=== PATIENT | female | born 1945 | race Two or more races ===

== ENCOUNTER → 2024-04-15 | Outpatient (CLI) | payer OTHER, SELFPAY ==
--- NOTE | 2024-04-15 08:15 | XR_ITS ---
Examination: MRI brain without intravenous contrast. Date and time of exam: April 15, 2024 0834 hours INDICATIONS: Cognitive impairment uncertain etiology beginning 2019 with hearing disturbance double and blurred vision Technique: Multiple axial and sagittal images of the brain obtained. Siemens high-resolution 1.5 Ashley short bore scanners utilized. Sagittal sections, T1-weighted, TR 500, TE 14, are performed. Axial sections proton-density and T2-weighted have been obtained. Inversion recovery axial images, TR 9, 260, TE 111, TI 2500. Diffusion weighted images, axial sections, TR 4800, TE 128, B value 1000 Axial sections, ADC map, TR 4800, TE 128 Findings: Enlargement of the sella turcica is not present. The optic chiasm and infundibular are not remarkable. Prepontine and interpeduncular cisterns are not enlarged. There is no localized enlargement of the medulla or negar. Fourth ventricle and cerebellar tonsils appear normal in position. No subacute area of hemorrhage density is seen. Mass in the cerebellopontine angle region is not evident. Globes symmetrical. Orbital musculature including medial lateral rectus muscles do not exhibit abnormality. Diffusion-weighted images demonstrate no focus of restricted diffusion. Increased white matter signal moderate Mass effect upon the ventricular system is not identified. Impression: Negative for acute hemorrhage mass effect or midline shift No acute infarct Moderate chronic microvascular white matter change
--- NOTE | 2024-04-15 08:27 | XR_ITS ---
Examination: Thoracic spine 3 views Technique one AP lateral coned lateral upper dorsal spine 3 views Exam date and time: April 15, 2024 0947 hours INDICATIONS: Upper back pain one year FINDINGS: Prominent osteopenia Upper thoracic dextroscoliosis 15 degrees Lower thoracic levoscoliosis 18 degrees Minimal chronic osteoporotic wedging mid dorsal vertebral bodies No acute thoracic fracture Mild to moderate diffuse thoracic degenerative disc disease IMPRESSION: Scoliosis as above Mild to moderate diffuse thoracic degenerative disc disease
--- NOTE | 2024-04-15 08:27 | XR_ITS ---
Examination: Lumbar spine, 5 views Technique: Lumbar spine AP, lateral, coned lateral lower lumbar spine, bilateral obliques 5 views Exam date and time: April 15, 2024 0910 hours INDICATIONS: Lower back pain beginning one year ago. FINDINGS: Prominent osteopenia Moderate to advanced diffuse facet arthropathy Heavy abdominal aortic calcification No lumbar fracture No spondylolisthesis Minimal anterolisthesis L5 on S1 Mild diffuse lumbar disc narrowing IMPRESSION: Mild diffuse lumbar disc narrowing
== END | disposition home or self-care (01) ==
PROVIDERS: PCP Family Medicine; Referring Provider Family Medicine; Visit Provider Family Medicine
DX: R90.82 White matter disease, unspecified (principal); M41.84 Other forms of scoliosis, thoracic region; M51.34 Other intervertebral disc degeneration, thoracic region; M48.061 Spinal stenosis, lumbar region without neurogenic claudication
CPT/HCPCS: 70551; 72072; 72110

== ENCOUNTER → 2024-06-25 | Outpatient (CLI) | payer OTHER, SELFPAY ==
[2024-06-25 10:12] LABS: Misc Send Out* See Sep Rpt
[2024-06-25 10:38] LABS: Basophils % (Auto) 0 % (0-2.5); Eosinophils # (Auto) 0.1 Thou/mm3 (0.0-0.5); Eosinophils % (Auto) 1 % (0-10); Hematocrit 43.1 % (36.0-46.0); Hemoglobin 14.4 g/dL (12.0-16.0); Immature Granulocytes % (Auto) 0 % (0-0); Immature Granulocytes Auto 0.02 Thou/mm3 (0.00-0.00); Lymphocytes # (Auto) 2.8 Thou/mm3 (1.0-4.8); Lymphocytes % (Auto) 37 % (10-50); Mean Corpuscular HGB Conc 33.4 g/dl (31.0-37.0); Mean Corpuscular Hemoglobin 30.1 pg (25.0-35.0); Mean Corpuscular Volume 90 fL (80-100); Monocytes # (Auto) 0.5 Thou/mm3 (0.0-0.8); Monocytes % (Auto) 6 % (0-12); Neutrophils # (Auto) 4.1 Thou/mm3 (1.8-7.7); Neutrophils % (Auto) 55 % (37-80); Nucleated Red Blood Cell % 0 /100 WBC (0); Platelet Count 187 Thou/mm3 (140-440); RDW Standard Deviation 46.5 fL (36.4-46.3); Red Blood Count 4.79 Miln/mm3 (4.00-5.20); White Blood Count 7.4 Thou/mm3 (3.6-11.0)
[2024-06-25 10:55] LABS: Alanine Aminotransferase 27 U/L (10-49); Albumin, Serum 4.9 gm/dL (3.4-4.8); Albumin/Globulin Ratio 1.5 (1.2-2.2); Alkaline Phosphatase 83 U/L (46-116); Anion Gap 11 (7-16); Aspartate Amino Transferase 27 U/L (0-34); BUN/Creatinine Ratio 30 Ratio (12-20); Bilirubin,Total 0.9 mg/dL (0.3-1.2); Blood Urea Nitrogen 21 mg/dL (9-23); Calcium 9.9 mg/dL (8.3-10.6); Calcium (Corrected) 9.9 mg/dL (8.5-10.1); Carbon Dioxide 25.4 mMol/L (20.0-31.0); Cardiac Risk Estimate 2.7 RATIO (3.7-5.6); Chloride 105 mMol/L (98-107); Cholesterol 190 mg/dL (132-200); Creatinine (Component) 0.7 mg/dL (0.6-1.3); Globulin 3.2 gm/dL (2.3-3.5); Glucose 139 mg/dL (74-106); HDL Cholesterol 71 mg/dL (40-60); LDL Cholesterol,Calculated 105 mg/dL (0-130); Osmolality,Calculated 286 (275-295); Potassium 4.7 mMol/L (3.4-5.1); Sodium 141 mMol/L (136-145); Thyroid Stimulating Hormone 4.67 uIU/mL (0.55-4.78); Total Protein 8.1 gm/dL (5.7-8.2); Triglycerides 69 mg/dL (30-150); eGFR > 60 See Note
[2024-06-25 11:03] LABS: T4 (Thyroxine) 8.8 mcg/dL (4.5-10.9)
[2024-06-25 11:04] LABS: Folate > 24.00 ng/mL (>5.38); Vitamin B12 632 pg/mL (211-911)
[2024-06-25 11:21] LABS: Glucose Estimated Average 146 mg/dL (80-131); Hemoglobin A1C 6.7 % Hgb (4.8-6.0)
[2024-07-01 06:56] LABS: Homocysteine* 10.2 umol/L (<10.4); Methylmalonic Acid, GC/MS/MS* 173 nmol/L (69-390)
[2024-07-02 06:25] LABS: Vitamin B1 (Thiamine)* 8 nmol/L (8-30)
== END | disposition home or self-care (01) ==
LOC: COPL 09:33
PROVIDERS: PCP Family Medicine; Referring Provider Nurse Practitioner Family; Visit Provider Nurse Practitioner Family
DX: R26.81 Unsteadiness on feet (principal); D64.9 Anemia, unspecified; R42 Dizziness and giddiness; G31.84 Mild cognitive impairment of uncertain or unknown etiology; R03.0 Elevated blood-pressure reading, without diagnosis of hypertension
CPT/HCPCS: 36415; 80053; 80061; 82607; 82746; 83036; 83090; 83789; 83921; 84425; 84436; 84443; 85025

== ENCOUNTER 2024-10-30 19:05 | Emergency (ER) | payer OTHER, SELFPAY ==
[2024-10-30 19:13] VITALS: BP 151/75; PULSE 84; RESP 20; TEMP 38.8; O2SAT 95
--- NOTE | 2024-10-30 19:31 | PD.EDRME ---
Rapid Medical Screening Exam RME Arrival date/time: 10/30/24 19:05 Chief Complaint: Fall Vital signs: Vital Signs Temperature 102 F H 10/30/24 19:13 Pulse Rate 84 10/30/24 19:13 Respiratory Rate 20 10/30/24 19:13 Blood Pressure 151/75 H 10/30/24 19:13 Pulse Oximetry (%) 95 10/30/24 19:13 Oxygen Delivery Method Room Air 10/30/24 19:13 Pulse ox is 95% room air RME Narrative: 79-year-old female presents to the ED with complaint of feeling dizzy as well as weak with extreme body pain. Patient tells me she felt and stayed on the floor for 7 hours as she was not able to get herself up off the floor. Patient also did not note that she had a fever. Denies any nausea or vomiting. Has a decreased appetite for food and fluids. Family member tells me the patient has been having urinary tract infections intermittently for the last year.
--- NOTE | 2024-10-30 19:34 | XR_ITS ---
Examination: CT brain head without contrast. 2-D sagittal coronal reconstructions Date and time of exam:October 30, 2024, 2009 hours. INDICATIONS: Patient fell today with injury to the head, blurred vision dizziness headache. CTDI: vol (mGy):44.1. DLP: (mGycm):800 Technique: Multiple CT axial sections of the brain have been obtained, 5 mm slice thickness. Contrast has not been administered. 2-D sagittal, coronal reconstructions have been obtained Low dose protocols were performed. One or more of the following dose reduction techniques were used; automated exposure control, adjustment of the mA and/or KV according to patient size, use of iterative reconstruction technique. Findings: No significant ventricular enlargement. Intra-axial or extra-axial hemorrhage density is not seen. No mass effect or midline shift Basal cisterns are not remarkable. Fourth ventricle is midline. Cranial vault intact. Impression: Negative for acute hemorrhage, mass effect or midline shift
--- NOTE | 2024-10-30 19:34 | EKG_ITS ---
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: : 1945 Requested By: Mohsen Medina Order Number: [id number] Reading MD: Mohsen Medina Measurements Intervals Lorraine Rate: 78 P: GA: QRS: 6 QRSD: 78 T: 207 QT: 416 QTc: 475 Interpretive Statements ATRIAL FIBRILLATION ST DEVIATION AND MODERATE T-WAVE ABNORMALITY, CONSIDER ANTEROLATERAL ISCHEMIA [-0.1+ mV T-WAVE IN V3-V6] ST DEVIATION AND MODERATE T-WAVE ABNORMALITY, CONSIDER INFERIOR ISCHEMIA [-0.1+ mV T-WAVE IN II/aVF] Compared to ECG 05/23/2018 12:24:45 T-wave abnormality now present Possible ischemia now present Sinus rhythm no longer present /store/S0/[id number]/ecg/[id number].pdf
--- NOTE | 2024-10-30 19:35 | XR_ITS ---
Examination: PA lateral chest 2 views Technique portable upright AP lateral chest 2 views Date and time: October 30, 2024, 1945 hours. INDICATIONS: Chest pain today. FINDINGS: Pneumonia left base. No pneumothorax. Normal heart size. Clavicles and ribs intact, chronic osteoporotic compressions dorsal vertebral bodies. IMPRESSION: Pneumonia left base
[2024-10-30 20:07] LABS: Basophils % (Auto) 0 % (0-2.5); Eosinophils % (Auto) 0 % (0-10); Hematocrit 39.1 % (36.0-46.0); Hemoglobin 13.6 g/dL (12.0-16.0); Immature Granulocytes % (Auto) 0 % (0-0); Immature Granulocytes Auto 0.04 Thou/mm3 (0.00-0.00); Lymphocytes # (Auto) 1.7 Thou/mm3 (1.0-4.8); Lymphocytes % (Auto) 18 % (10-50); Mean Corpuscular HGB Conc 34.8 g/dl (31.0-37.0); Mean Corpuscular Hemoglobin 30.3 pg (25.0-35.0); Mean Corpuscular Volume 87 fL (80-100); Monocytes # (Auto) 0.7 Thou/mm3 (0.0-0.8); Monocytes % (Auto) 7 % (0-12); Neutrophils % (Auto) 74 % (37-80); Nucleated Red Blood Cell % 0 /100 WBC (0); Platelet Count 206 Thou/mm3 (140-440); Red Blood Count 4.49 Miln/mm3 (4.00-5.20); White Blood Count 9.5 Thou/mm3 (3.6-11.0)
[2024-10-30 20:29] LABS: B-Type Natriuretic Peptide 232 pg/mL (0-100)
[2024-10-30 20:30] LABS: Alanine Aminotransferase 35 U/L (10-49); Albumin, Serum 4.4 gm/dL (3.4-4.8); Albumin/Globulin Ratio 1.4 (1.2-2.2); Alkaline Phosphatase 68 U/L (46-116); Anion Gap 9 (7-16); Aspartate Amino Transferase 29 U/L (0-34); BUN/Creatinine Ratio 13 Ratio (12-20); Bilirubin,Total 1.1 mg/dL (0.3-1.2); Blood Urea Nitrogen 10 mg/dL (9-23); Carbon Dioxide 24.4 mMol/L (20.0-31.0); Chloride 99 mMol/L (98-107); Creatinine (Component) 0.8 mg/dL (0.6-1.3); Globulin 3.2 gm/dL (2.3-3.5); Glucose 139 mg/dL (74-106); LDH (Lactate Dehydrogenase) 231 U/L (120-246); Magnesium 2.2 mg/dL (1.6-2.6); Osmolality,Calculated 265 (275-295); Potassium 4.4 mMol/L (3.4-5.1); Sodium 132 mMol/L (136-145); Total Protein 7.6 gm/dL (5.7-8.2); eGFR > 60 See Note
[2024-10-30 20:39] LABS: INR 1.1 (0.9-1.3); Prothrombin Time 12.4 Seconds (9.0-12.2)
[2024-10-30 20:48] VITALS: TEMP 38.8
[2024-10-30] MEDS: ACETAMINOPHEN 325 MG TABLET 650 MG PO (20:48)
--- NOTE | 2024-10-30 21:17 | XR_ITS ---
Examination: CT cervical spine without contrast 2-D sagittal reconstructions 2-D coronal reconstructions 3-D reconstructions. Exam date and time:October 30, 2024 at 1007 hours INDICATIONS: Patient fell yesterday with injury to the neck, neck pain CTDI:vol (mGy) 13.8 DLP: (mGycm) : 262 Technique: Multiple 2 mm axial sections of the cervical spine have been obtained. The coronal and sagittal reconstructions have been obtained. 3-D reconstructions have been obtained. Low dose protocols were performed. One or more of the following dose reduction techniques were used; automated exposure control, adjustment of the mA and/or KV according to patient size, use of iterative reconstruction technique. Findings: Axial sections demonstrate intact base of the skull. C1 exhibit satisfactory relationship to the odontoid. No acute cervical vertebral body fracture seen. Alignment posterior spinous processes satisfactory. Impression: No acute cervical fracture.
--- NOTE | 2024-10-30 21:19 | EDNOTE_ITS ---
<Statement entered by Nora Mena MD - 10/31/24 18:25> As co-signing physician, I was present and available for consult prn. I concur with the plan and care as documented by the midlevel provider. ED Fall Injury RME/HPI General Chief Complaint: Fall Stated Complaint: Fall yesterday, weak, slurring her words Time Seen by Provider: 10/30/24 20:55 Arrival date/time: 10/30/24 19:05 RME / HPI RME / HPI Narrative: 79-year-old female presents to the ED with complaint of feeling dizzy as well as weak with extreme body pain. Patient tells me she felt and stayed on the floor for 7 hours as she was not able to get herself up off the floor. Patient also did not note that she had a fever. Denies any nausea or vomiting. Has a decreased appetite for food and fluids. Family member tells me the patient has been having urinary tract infections intermittently for the last year. Patient denies any other complaints. Related Data Previous Rx's ?Medication ?Instructions ?Recorded nitrofurantoin macrocrystal 100 mg 100 mg PO Q12H #14 caps 12/02/18 capsule meloxicam 7.5 mg tablet 7.5 mg PO QDAY #30 tabs 09/05 09/25 cefuroxime axetil 500 mg tablet 500 mg PO BID #14 tabs 05/20/23 sulfamethoxazole 800 1 tab PO BID #10 tabs mg-trimethoprim 160 mg tablet (Bactrim DS) Allergies Allergy/AdvReac Type Severity Reaction Status Date / Time No Known Allergies Allergy Verified 10/30/24 19:10 Review of Systems Review of Systems Narrative Review of Systems: Review of system reviewed and within normal limits except mentioned in HPI ED Exam Narrative Physical exam: VITAL SIGNS: Reviewed. GENERAL APPEARANCE: Alert and interactive, follows commands, no acute distress, HEAD AND FACE: Non-traumatic. ENT: PERRL, pink conjunctivitis, eyelid no trauma, Mucous membrane moist. NECK: Supple, nontender, no nuchal rigidity. CHEST: No tenderness, no crepitus, no paradoxical movement, no retractions. LUNGS: Clear, well ventilated, symmetric, no rales, no wheezing, no ronchi, no stridor, good breath sounds bilaterally. HEART: Regular rate, regular rhythm, no murmur, no gallops. ABDOMEN: Soft, positive bowel sounds, nondistended, no guarding, nontender, no rebound, no masses, RECTAL: Deferred. GENITAL: Deferred. NEUROLOGICAL: Gross motor function intact sensory function intact, Appropriate for age. MUSCULOSKELETAL: low back nontender, full range of motion. EXTREMITIES: Nontender, full range of motion. SKIN: Color pink, dry, no rash, no lacerations, no abrasions, no contusions. LYMPHATICS: Deferred. Course Quality Measures none Orders Category Date Time Status Bedside COVID-19 Antigen Test NOW Care 10/30/24 19:48 Completed EKG (ED ONLY) *Do not use* NOW Care 10/30/24 19:[address] cervical spine wo con Stat Exams 10/30/24 21:[address] head/brain wo con Stat Exams 10/30/24 19:34 Completed EKG (ED Only) Stat Exams 10/30/24 19:34 Draft XR chest 2V Stat Exams 10/30/24 19:35 Completed B-Type Natriuretic Peptide Stat Lab 10/30/24 20:02 Completed CBC Stat Lab 10/30/24 20:02 Completed CMP [Comprehensive Metabolic Panel] Stat Lab 10/30/24 20:02 Completed Creatine Kinase Stat Lab 10/30/24 20:02 Completed Drug Screen,Urine Stat Lab 10/30/24 23:14 Completed LDH (Lactate Dehydrogenase) Stat Lab 10/30/24 20:02 Completed Magnesium Stat Lab 10/30/24 20:02 Completed Partial Thromboplastin Time Stat Lab 10/30/24 20:02 Completed Prothrombin Time with INR Stat Lab 10/30/24 20:02 Completed Troponin I Stat Lab 10/30/24 20:02 Completed Urinalysis Stat Lab 10/30/24 23:14 Completed Acetaminophen Tab [Tylenol Tab] Med 10/30/24 19:47 Discontinued 650 mg PO X1 ONE Sodium Chloride 0.9% 1000 ml [Ns] 1,000 ml Med 10/30/24 21:18 Discontinued IV 999 mls/hr Trimethoprim/Sulfa 160/800 Ds [Bactrim Ds] Med 10/31/24 00:04 Discontinued 1 tab PO X1 ONE Vital Signs Vital signs: Vital Signs Temperature 102 F H 10/30/24 19:13 Pulse Rate 84 10/30/24 19:13 Respiratory Rate 20 10/30/24 19:13 Blood Pressure 151/75 H 10/30/24 19:13 Pulse Oximetry (%) 95 10/30/24 19:13 Oxygen Delivery Method Room Air 10/30/24 19:13 Fall MDM Narrative MDM Narrative:: 79-year-old female presents to the ED with complaint of feeling dizzy as well as weak with extreme body pain. Patient tells me she felt and stayed on the floor for 7 hours as she was not able to get herself up off the floor. Patient also did not note that she had a fever. Denies any nausea or vomiting. Has a decreased appetite for food and fluids. Family member tells me the patient has been having urinary tract infections intermittently for the last year. Patient denies any other complaints. CT scan of the head came back unremarkable. CT scan of the neck came back unremarkable. Chest x-ray came back unremarkable. EKG showed chronic A-fib, ventricular rate of 78 bpm, no ST segment elevation depression noted. Urinalysis positive for UTI. There is of the labs unremarkable. Care transferred to Dr. Spaulding for final disposition Patient data External records reviewed:: None Clinical information provided by:: patient Social determinants that could affect healthcare access:: none Patient has the following chronic illnesses:: None How is presenting disease/condition affected by chronic disease/condition?: no chronic disease Evaluation data The following diagnostics were reviewed and interpreted by me:: lab results, radiology exam(s) and EKG tracing(s) Lab and/or radiology exams considered but not ordered:: None Interpretation Summary: See results [facility] Medications / Prescriptions Medications or Prescriptions considered but not ordered:: None Medication administrations:: Medication Administration History Discontinued Medications Acetaminophen (Acetaminophen 325 Mg Tablet) 650 mg PO X1 ONE Stop: 10/30/24 19:48 Last Admin: 10/30/24 20:48 Dose: 650 mg Documented By: Sodium Chloride (Ns) 1,000 mls @ 999 mls/hr IV .Q1H1M ONE Stop: 10/30/24 22:18 Last Infusion: 10/30/24 23:34 Dose: Infused Documented By: Admin: 10/30/24 22:33 Dose: 999 mls/hr Documented By: EF Trimethoprim/Sulfamethoxazole (Trimethoprim/Sulfa 160/800 Ds Tablet) 1 tab PO X1 ONE Stop: 10/31/24 00:05 Last Admin: 10/31/24 00:15 Dose: 1 tab Documented By: JUANA Iversonrim Consultations Consultation(s) initiated? (list below): No Diagnosis Fall Differential Diagnosis: other (Fall, rhabdomyolysis, UTI) Most likely diagnosis given after review of the tests above:: UTI Admission Indicated Admission indicated?: not indicated Explain why admission is indicated or not indicated:: Stable Admission Request Was there a request for admission?: No Disposition Plan Disposition Plan: Discharge Discharge Attestation Discharge Attestation: The patient and all family members were given an opportunity to ask questions and understood the discharge instructions. Discharge instructions specifically effects, indications for sooner follow up or return to the emergency department, and the expected course of current diagnosis. Patient condition: Stable Discharge Plan Plan Patient Disposition: HOME (Self Care) Prescriptions/Referrals Prescriptions/Med Rec: New sulfamethoxazole-trimethoprim [Bactrim DS] 800-160 mg tablet 1 tab PO BID Qty: 10 0RF No Action nitrofurantoin macrocrystal 100 mg capsule 100 mg PO Q12H Qty: 14 0RF Rx Instructions: must administer with a meal/food meloxicam 7.5 mg tablet 7.5 mg PO QDAY Qty: 30 0RF cefuroxime axetil 500 mg tablet 500 mg PO BID Qty: 14 0RF Referrals: Brandy Miner MD [Primary Care Provider] - In 1 week Problem List Clinical Impression: UTI (urinary tract infection), Fall, Generalized weakness Patient/Caregiver Discharge Instructions Education Materials: ED CYSTITIS Female Adult Print Language: Kazakh Stand Alone Forms: Yolette Award Info., Patient Portal Info Letter
[2024-10-30 21:41] LABS: Creatine Kinase 341 U/L (34-171)
[2024-10-30 22:17] VITALS: BP 132/73; PULSE 69; RESP 17; TEMP 37; O2SAT 98
[2024-10-30 22:25] VITALS: TEMP 37
[2024-10-30] MEDS: SODIUM CHLORIDE 0.9% 1000 ML 1,000 ML 999 ML IV (22:33)
[2024-10-30 23:18] LABS: Collection Type, Urine Clean Catch; RBC,Urine 0 /hpf (0-3)
[2024-10-30 23:24] LABS: Bacteria,Urine 1+; Bilirubin,Urine Negative (Negative); Blood,Urine Negative (Negative); Clarity,Urine Turbid (Clear/Hazy); Color,Urine Yellow (Lt Yel-Yel); Glucose, Urine Trace (Negative); Ketones,Urine Negative (Negative); Leukocyte Esterase,Urine Positive (Negative); Nitrite,Urine Negative (Negative); Protein,Urine Trace (Neg - Trace); Specific Gravity,Urine 1.015 (1.001-1.035); Squamous Epithelial Cell,Urine 5 /hpf (0-5); Urobilinogen,Urine Negative mg/dL (0.0-1.0); WBC,Urine 69 /hpf (0-5)
[2024-10-30 23:37] LABS: Amphetamine/Methamp Scrn,U Negative (Negative); Barbiturate Screen,Urine Negative (Negative); Benzodiazepines Screen,Urine Negative (Negative); Benzoylecgonine Screen, Ur Negative (Negative); Fentanyl Screen,Urine Negative (Negative); Opiate Screen,Urine Negative (Negative); THC Screen,Urine Negative (Negative)
--- NOTE | 2024-10-31 00:05 | PD.EDADDENDU ---
Emergency Room Addendum Addendum Narrative: 2300: Care assumed from Bryn Schmidt NP (emergency provider). Past medical, surgical, social and family history reviewed. Vitals and home medications reviewed. Results and treatment plan discussed. They will assume the care of the patient at this time and will follow the patient, pending labs. The following addendum documentation note is intended to reflect any pending information, findings, or radiology results not included in the patient?s initial chart by the previous shift silvanaibe. 0003: Urine tests positive for UTI. 0007: I have spoken with the patient and discussed today?s findings, in addition to providing specific details for the plan of care. Questions are answered and there is an agreement with the plan. Re-assessment at the time of disposition demonstrates that the patient is in no acute distress. The patient has remained stable throughout the entire ED visit and is without objective evidence for acute process requiring urgent intervention or hospitalization. The patient is stable for discharge; counseling is provided and documented as above, discussing symptomatic treatment and specific conditions for return.
[2024-10-31] MEDS: TRIMETHOPRIM/SULFA 160/800 DS TABLET 1 TAB PO (00:15)
== END 2024-10-31 00:21 | disposition home or self-care (01) ==
PROVIDERS: Physician Assistant; Emergency Provider Emergency Medicine; PCP Family Medicine
DX: S09.90XA Unspecified injury of head, initial encounter (principal); S19.9XXA Unspecified injury of neck, initial encounter; N39.0 Urinary tract infection, site not specified; I48.20 Chronic atrial fibrillation, unspecified; R07.9 Chest pain, unspecified; W19.XXXA Unspecified fall, initial encounter
CPT/HCPCS: 36415; 70450; 71046; 72125; 80053; 80307; 81001; 82550; 83615; 83735; 83880; 84484; 85025; 85610; 85730; 87400; 87502; 87811; 93005; 96360; 99284; J7030; A9270

== ENCOUNTER → 2024-11-04 | Outpatient (CLI) | payer OTHER, SELFPAY | END | disposition home or self-care (01) | LOC: SLDO 14:18 | PROVIDERS: PCP Nurse Practitioner Family; Referring Provider Nurse Practitioner Family; Visit Provider Nurse Practitioner Family | DX: N30.20 Other chronic cystitis without hematuria (principal) | CPT/HCPCS: 87077; 87086; 87186 ==

== ENCOUNTER → 2024-11-07 | Outpatient (CLI) | payer OTHER, SELFPAY | END | disposition home or self-care (01) | LOC: SLDO 14:26 | PROVIDERS: PCP Family Medicine; Referring Provider Nurse Practitioner Family; Visit Provider Nurse Practitioner Family | DX: N39.0 Urinary tract infection, site not specified (principal) | CPT/HCPCS: 87077; 87086; 87186 ==

== ENCOUNTER → 2024-11-19 | Outpatient (CLI) | payer OTHER, SELFPAY ==
[2024-11-19 09:53] LABS: Alanine Aminotransferase 19 U/L (10-49); Albumin, Serum 4.1 gm/dL (3.4-4.8); Albumin/Globulin Ratio 1.2 (1.2-2.2); Alkaline Phosphatase 72 U/L (46-116); Anion Gap 8 (7-16); Aspartate Amino Transferase 22 U/L (0-34); BUN/Creatinine Ratio 19 Ratio (12-20); Bilirubin,Total 1.0 mg/dL (0.3-1.2); Blood Urea Nitrogen 13 mg/dL (9-23); Calcium 9.4 mg/dL (8.3-10.6); Calcium (Corrected) 9.4 mg/dL (8.5-10.1); Carbon Dioxide 27.6 mMol/L (20.0-31.0); Cardiac Risk Estimate 3.0 RATIO (3.7-5.6); Chloride 106 mMol/L (98-107); Cholesterol 157 mg/dL (132-200); Creatinine (Component) 0.7 mg/dL (0.6-1.3); Free T4 (Free Thyroxine) 0.99 ng/dL (0.89-1.76); Globulin 3.3 gm/dL (2.3-3.5); Glucose 115 mg/dL (74-106); HDL Cholesterol 52 mg/dL (40-60); LDL Cholesterol,Calculated 89 mg/dL (0-130); Osmolality,Calculated 284 (275-295); Potassium 4.9 mMol/L (3.4-5.1); Sodium 142 mMol/L (136-145); Thyroid Stimulating Hormone 5.39 uIU/mL (0.55-4.78); Total Protein 7.4 gm/dL (5.7-8.2); Triglycerides 82 mg/dL (30-150); eGFR > 60 See Note
[2024-11-19 10:07] LABS: Basophils # (Auto) 0.0 Thou/mm3 (0.0-0.2); Basophils % (Auto) 0 % (0-2.5); Eosinophils # (Auto) 0.1 Thou/mm3 (0.0-0.5); Eosinophils % (Auto) 2 % (0-10); Glucose Estimated Average 140 mg/dL (80-131); Hematocrit 41.2 % (36.0-46.0); Hemoglobin 14.0 g/dL (12.0-16.0); Hemoglobin A1C 6.5 % Hgb (4.8-6.0); Immature Granulocytes Auto 0.02 Thou/mm3 (0.00-0.00); Lymphocytes # (Auto) 3.6 Thou/mm3 (1.0-4.8); Lymphocytes % (Auto) 52 % (10-50); Mean Corpuscular HGB Conc 34.0 g/dl (31.0-37.0); Mean Corpuscular Hemoglobin 30.4 pg (25.0-35.0); Mean Corpuscular Volume 89 fL (80-100); Monocytes # (Auto) 0.5 Thou/mm3 (0.0-0.8); Monocytes % (Auto) 8 % (0-12); Neutrophils # (Auto) 2.6 Thou/mm3 (1.8-7.7); Neutrophils % (Auto) 38 % (37-80); Nucleated Red Blood Cell # 0.00 Thou/mm3 (0.00-0.00); Nucleated Red Blood Cell % 0 /100 WBC (0); Platelet Count 155 Thou/mm3 (140-440); RDW Standard Deviation 48.6 fL (36.4-46.3); Red Blood Count 4.61 Miln/mm3 (4.00-5.20); White Blood Count 6.8 Thou/mm3 (3.6-11.0)
== END | disposition home or self-care (01) ==
LOC: COPL 08:14
PROVIDERS: PCP Family Medicine; Referring Provider Nurse Practitioner Family; Visit Provider Nurse Practitioner Family
DX: E11.9 Type 2 diabetes mellitus without complications (principal); N39.0 Urinary tract infection, site not specified
CPT/HCPCS: 36415; 80053; 80061; 83036; 84439; 84443; 85025; 87086

== ENCOUNTER 2024-12-30 10:34 | Emergency (ER) | payer OTHER, SELFPAY ==
[2024-12-30 10:35] VITALS: BMI 25.7
[2024-12-30 10:51] VITALS: BP 123/72; PULSE 80; RESP 18; TEMP 36.6; O2SAT 99
--- NOTE | 2024-12-30 10:56 | EDNOTE_ITS ---
ED General RME/HPI General Chief complaint: General Adult/Misc Complain Stated complaint: BLOOD IN URINE Time Seen by Provider: 12/30/24 10:36 Arrival date/time: 12/30/24 10:34 Limitations: no limitations RME / HPI RME / HPI narrative: 79 year old female with history of hypertension, diabetes, s/p hysterectomy presents to the ED for evaluation of vaginal bleeding? and blood in urine that began yesterday afternoon. States she noticed the bleeding shortly after taking her supplements which include magnesium, calcium, potassium. States she had one episode of bleeding that was present without urinating and through the night had three episodes of hematuria. Last occurring at 03:00 AM today. Accompanied by occasional pressure to lower abdomen. Otherwise no complaints reported. Denies fevers, chills, nausea, vomiting, diarrhea, dysuria, or urinary frequency. Patient additionally complains of left upper extremity pain that began 1 month ago. No falls or injuries reported. Denies consulting her PCP regarding pain. Related Data Previous Rx's ?Medication ?Instructions ?Recorded nitrofurantoin macrocrystal 100 mg 100 mg PO Q12H #14 caps 12/02/18 capsule meloxicam 7.5 mg tablet 7.5 mg PO QDAY #30 tabs 09/05 09/25 cefuroxime axetil 500 mg tablet 500 mg PO BID #14 tabs 05/20/23 sulfamethoxazole 800 1 tab PO BID #10 tabs mg-trimethoprim 160 mg tablet (Bactrim DS) Allergies Allergy/AdvReac Type Severity Reaction Status Date / Time No Known Allergies Allergy Verified 12/30/24 10:37 Review of Systems Review of Systems Systems Reviewed: All systems reviewed, normal except as documented Past Medical History Past Medical History CARDIAC: Positive Hypercholesterolemia and Hypertension; Negative Congestive Heart Failure RESPIRATORY: Negative Chronic Obstructive Pulmonary Disease (COPD) GENITOURINARY: Negative Renal Disease ENDOCRINE: Negative Diabetes Mellitus Type 1 or Diabetes Mellitus Type 2 Surgical History SURGICAL: Positive Hysterectomy Social History SMOKING STATUS: Never smoker ED Exam General Limitations: Present no limitations General appearance: Present alert and in no apparent distress Head Head exam: Present atraumatic and normocephalic Eye Eye exam: Present normal appearance, PERRL and EOMI ENT ENT exam: Present normal exam, normal oropharynx and mucous membranes moist Neck Neck exam: Present normal inspection, full ROM and trachea midline Chest Chest inspection: Present normal inspection and symmetric chest wall rise Respiratory Respiratory exam: Present normal lung sounds bilaterally Cardiovascular Cardiovascular exam: Present regular rate, normal rhythm and normal heart sounds Abdominal Exam Abdominal exam: Present soft and normal bowel sounds Extremities Exam Extremities exam: Present normal inspection, full ROM and other (No left upper extremity swelling or tenderness to palpation, no discoloration, pulses intact and equal bilaterally UEs); Absent tenderness Back Exam Back exam: Present normal inspection and full ROM Neurological Exam Neurological exam: Present alert, oriented X3 and CN II-XII intact Psychiatric Psychiatric exam: Present normal affect and normal mood Skin Skin exam: Present warm, dry, intact and normal color Course Quality Measures none Orders Category Date Time Status CT Screening NOW Care 12/30/24 11:08 Completed EKG (ED ONLY) *Do not use* NOW Care 12/30/24 11:[address] abdomen pelvis w con Stat Exams 12/30/24 11:07 Completed CXR [XR chest 1V] Stat Exams 12/30/24 11:07 Completed EKG (ED Only) Stat Exams 12/30/24 11:07 Draft US pelvic complete Stat Exams 12/30/24 11:08 Completed US venous doppler UE LT Stat Exams 12/30/24 11:07 Completed CBC Stat Lab 12/30/24 11:24 Completed CMP [Comprehensive Metabolic Panel] Stat Lab 12/30/24 11:24 Completed Troponin I Stat Lab 12/30/24 11:24 Completed UA, C/S IF [Urinalysis, C/S if Indicated] Stat Lab 12/30/24 14:00 Completed Vital Signs Vital signs: Vital Signs Temperature 98 F 12/30/24 10:51 Pulse Rate 80 12/30/24 10:51 Respiratory Rate 18 12/30/24 10:51 Blood Pressure 123/72 12/30/24 10:51 Pulse Oximetry (%) 99 12/30/24 10:51 Oxygen Delivery Method Room Air 12/30/24 10:51 Pulse ox is 99% on room air which is adequate. Critical Care Time Critical Care Time Critical Care Time: Yes Total Critical Care Time (min.): 45 Attestation: ?I spent 45 minutes of critical care time with this patient not including reportable procedures. There was an acute impairment of an organ system with a high probability of imminent or life threatening deterioration in the patient's condition. Interventions and changes required in the course of therapy are located in the chart. Time involved was spent in direct patient care, reviewing ancillary data, old records, consulting with decision makers, EMS, other doctors, giving orders and documenting. Discharge Plan Plan Patient Disposition: HOME (Self Care) Prescriptions/Referrals Prescriptions/Med Rec: No Action nitrofurantoin macrocrystal 100 mg capsule 100 mg PO Q12H Qty: 14 0RF Rx Instructions: must administer with a meal/food meloxicam 7.5 mg tablet 7.5 mg PO QDAY Qty: 30 0RF cefuroxime axetil 500 mg tablet 500 mg PO BID Qty: 14 0RF sulfamethoxazole-trimethoprim [Bactrim DS] 800-160 mg tablet 1 tab PO BID Qty: 10 0RF Referrals: Rafat Miner MD [Primary Care Provider] - In 1 week Problem List Clinical Impression: Abnormal vaginal bleeding Patient/Caregiver Discharge Instructions Education Materials: Arm Exercises- Biceps Curl Additional Instructions: Please make an appointment with your primary care doctor within the next 1 to 2 days. Your labs today EKG chest x-ray and CT brain were reassuring. No significant abnormalities were appreciated. Your ultrasound of your left upper extremity did not show a blood clot. Your CT of your abdomen and pelvis as well as your pelvic ultrasound did not show any masses or other abnormalities. Your urine does not have any blood. I would recommend that you establish care with a [facility] for further management of your episodes of blood through your vagina. I also recommend that you establish care with a tank [employer] for management of your atrial fibrillation that was diagnosed today on EKG. Print Language: Belizean Stand Alone Forms: Yolette Award Info., Patient Portal Info Letter [facility] Narrative [facility] hospital course: Loyda Dozier, am scribing for and in the presence of Dr. Nicholson. Patient is a 71-year-old female seen emerged from concerns for left upper extremity pain as well as vaginal or urinary bleeding. Vital signs and exam as listed. Concern for DVT urinary tract infection, vaginal tumor, ACS arrhythmia electrolyte abnormality among others. Labs EKG chest x-ray left upper extremity ultrasound CT abdomen pelvis with contrast. Labs with evidence of no leukocytosis, left shift, hemoglobin normal, no acute electrolyte abnormality, no significant metabolic abnormality, no transaminitis, troponin not elevated, EKG with sinus bradycardia heart rate 49, urinalysis nitrate negative, urine is clear patient with amorphous crystals, leuk esterase positive, 9 WBCs, [address] abdomen pelvis without any acute abnormalities. Hepatocellular disease. Pelvic ultrasound without evidence of pelvic mass. Upper extremity ultrasound without evidence of DVT. Chest x-ray findings concerning for possible pneumonia however patient without fever no leukocytosis no cough no shortness of breath less likely less likely RPA. On reevaluation patient hemodynamically stable no distress will discharge home and close return precautions follow-up with primary care doctor. Recommended that she follow-up with her [facility] for further evaluation. Clinical Information Provided by patient Medical Records Reviewed [facility] I reviewed ED visit on 10/31/2024 Meds/Rx Considered, not Ordered None Labs/Rad/Tests considered, not Ordered None Chronic Illness/Social Conditions which may negatively complicate care or outcome(s)-explain: None or not applicable EKG EKG Interpretation narrative: See MDM Lab Interpretation Labs: see narrative above Imaging Imaging interpretation: see narrative above Radiology reports / interpretation(s): Ordering Physician: Nena Nicholson MD Date of Service: 12/30/24 Procedure(s): XR chest 1V Accession Number(s): [id number] cc: Wayne Dee MD; Nena Nicholson MD~ Examination: AP chest single view TECHNIQUE: AP portable upright chest single view Date and time: December 30, 2024, 11:47 AM, comparison October 30, 2024. INDICATIONS: Chest pain today. FINDINGS: Atelectasis versus mild pneumonia left base Normal heart size No pulmonary edema. Moderate osteopenia IMPRESSION: Atelectasis versus mild pneumonia left base, clinical correlation advised Dictated By: Wayne Dee MD Signed By: <Electronically signed by Wayne Dee MD in OV> 12/30/24 1214 ===== Ordering Physician: Nena Nicholson MD Date of Service: 12/30/24 Procedure(s): US venous doppler UE LT Accession Number(s): [id number] cc: Wayne Dee MD; Rafat Miner MD; Nena Nicholson MD~ Examination: Duplex scan of the upper extremity, unilateral left Date and time of exam: December 27, 2024. 12:30 PM INDICATIONS: Left arm swelling beginning one month ago Technique: Duplex scan of the extremity veins using B-mode/grayscale imaging and Doppler spectral analysis and color flow Attention is directed to internal echogenicity, compression and augmentation involving these veins, color flow assessment, spectral analysis Findings: Major deep venous structures in the extremity demonstrate normal course and caliber. There is no evidence of deep vein thrombosis. Normal color flow and spectral analysis Cephalic vein not visualized Impression: Negative for DVT.. Dictated By: Wayne Dee MD Signed By: <Electronically signed by Wayne Dee MD in OV> 12/30/24 1347 Ordering Physician: Nena Nicholson MD Date of Service: 12/30/24 Procedure(s): US pelvic complete Accession Number(s): [id number] cc: Wayne Dee MD; Rafat Miner MD; Nena Nicholson MD~ Examination: Pelvic ultrasound, transabdominal, complete Technique: Transabdominal ultrasound of the pelvis performed using grayscale imaging Date and time of exam: December 30, 2024, 1226 hours INDICATIONS: Vaginal bleeding today FINDINGS: Absent uterus and ovaries No free fluid in the pelvis No pelvic mass Impression: No pelvic mass Dictated By: Wayne Dee MD Signed By: <Electronically signed by Wayne Dee MD in OV> 12/30/24 1344 Ordering Physician: Nena Nicholson MD Date of Service: 12/30/24 Procedure(s): CT abdomen pelvis w con Accession Number(s): [id number] cc: Wayne Dee MD; Rafat Miner MD; Nena Nicholson MD~ Examination: CT abdomen with intravenous contrast CT pelvis with intravenous contrast 2-D coronal reconstructions 2-D sagittal reconstructions Date and time of exam:December 30, 2024, 1358 hours, comparison 01/06/2022. INDICATIONS: Abdominal pain and vaginal bleeding beginning today.. CTDI: vol (mGy) 15.8. DLP: (mGycm) . 521. Technique: Multiple axial sections of the abdomen and pelvis have been obtained. 64 slice high-resolution scanner used. 3 mm axial sections have been obtained, post intravenous injection 60 cc Isovue 370. 2-D sagittal, coronal reconstructions obtained. Low dose protocols were performed. One or more of the following dose reduction techniques were used; automated exposure control, adjustment of the mA and/or KV according to patient size, use of iterative reconstruction technique. Findings: Liver is irregular in contour, no focal liver lesions Absent gallbladder. Spleen are not enlarged. No pancreatic mass. Normal adrenal glands. No renal or ureteral calculi, no hydronephrosis. Abdominal aortic calcification. No pericecal inflammatory change Colonic diverticulosis, no diverticulitis Absent uterus No adnexal mass Moderate osteopenia IMPRESSION: Primary hepatocellular disease No renal or ureteral calculi. Absent uterus, ovaries not visualized. No pelvic mass Dictated By: Wayne Dee MD Signed By: <Electronically signed by Wayne Dee MD in OV> 12/30/24 1442 Medication Administration(s) none Diagnosis Most likely dx, and/or detailed dx discussion: Abnormal vaginal bleeding Dispositon Disposition: Discharge Home
--- NOTE | 2024-12-30 11:07 | XR_ITS ---
Examination: AP chest single view TECHNIQUE: AP portable upright chest single view Date and time: December 30, 2024, 11:47 AM, comparison October 30, 2024. INDICATIONS: Chest pain today. FINDINGS: Atelectasis versus mild pneumonia left base Normal heart size No pulmonary edema. Moderate osteopenia IMPRESSION: Atelectasis versus mild pneumonia left base, clinical correlation advised
--- NOTE | 2024-12-30 11:07 | EKG_ITS ---
[facility] Test Date: 2024-12-30 Pat Name: LOLIS RODRÍGUEZ Department: Room: - Gender: Female [employer]: : 1945 Requested By: Nena Malave Order Number: [id number] Reading MD: Nena Malave Measurements Intervals [place] Rate: 49 P: NE: QRS: -14 QRSD: 77 T: 60 QT: 442 QTc: 400 Interpretive Statements ATRIAL FIBRILLATION WITH SLOW VENTRICULAR RESPONSE NONSPECIFIC T-WAVE ABNORMALITY ABNORMAL RHYTHM ECG Compared to ECG 10/30/2024 19:40:28 Possible ischemia no longer present T-wave abnormality still present /store/S0/[id number]/ecg/[id number].pdf
--- NOTE | 2024-12-30 11:07 | XR_ITS ---
Examination: CT abdomen with intravenous contrast CT pelvis with intravenous contrast 2-D coronal reconstructions 2-D sagittal reconstructions Date and time of exam:December 30, 2024, 1358 hours, comparison 01/06/2022. INDICATIONS: Abdominal pain and vaginal bleeding beginning today.. CTDI: vol (mGy) 15.8. DLP: (mGycm) . 521. Technique: Multiple axial sections of the abdomen and pelvis have been obtained. 64 slice high-resolution scanner used. 3 mm axial sections have been obtained, post intravenous injection 60 cc Isovue 370. 2-D sagittal, coronal reconstructions obtained. Low dose protocols were performed. One or more of the following dose reduction techniques were used; automated exposure control, adjustment of the mA and/or KV according to patient size, use of iterative reconstruction technique. Findings: Liver is irregular in contour, no focal liver lesions Absent gallbladder. Spleen are not enlarged. No pancreatic mass. Normal adrenal glands. No renal or ureteral calculi, no hydronephrosis. Abdominal aortic calcification. No pericecal inflammatory change Colonic diverticulosis, no diverticulitis Absent uterus No adnexal mass Moderate osteopenia IMPRESSION: Primary hepatocellular disease No renal or ureteral calculi. Absent uterus, ovaries not visualized. No pelvic mass
--- NOTE | 2024-12-30 11:07 | XR_ITS ---
Examination: Duplex scan of the upper extremity, unilateral left Date and time of exam: December 27, 2024. 12:30 PM INDICATIONS: Left arm swelling beginning one month ago Technique: Duplex scan of the extremity veins using B-mode/grayscale imaging and Doppler spectral analysis and color flow Attention is directed to internal echogenicity, compression and augmentation involving these veins, color flow assessment, spectral analysis Findings: Major deep venous structures in the extremity demonstrate normal course and caliber. There is no evidence of deep vein thrombosis. Normal color flow and spectral analysis Cephalic vein not visualized Impression: Negative for DVT..
--- NOTE | 2024-12-30 11:08 | XR_ITS ---
Examination: Pelvic ultrasound, transabdominal, complete Technique: Transabdominal ultrasound of the pelvis performed using grayscale imaging Date and time of exam: December 30, 2024, 1226 hours INDICATIONS: Vaginal bleeding today FINDINGS: Absent uterus and ovaries No free fluid in the pelvis No pelvic mass Impression: No pelvic mass
[2024-12-30 11:53] LABS: Basophils # (Auto) 0.0 Thou/mm3 (0.0-0.2); Basophils % (Auto) 0 % (0-2.5); Eosinophils # (Auto) 0.1 Thou/mm3 (0.0-0.5); Eosinophils % (Auto) 1 % (0-10); Hematocrit 38.5 % (36.0-46.0); Hemoglobin 12.7 g/dL (12.0-16.0); Immature Granulocytes Auto 0.02 Thou/mm3 (0.00-0.00); Lymphocytes # (Auto) 3.2 Thou/mm3 (1.0-4.8); Lymphocytes % (Auto) 45 % (10-50); Mean Corpuscular HGB Conc 33.0 g/dl (31.0-37.0); Mean Corpuscular Hemoglobin 30.2 pg (25.0-35.0); Mean Corpuscular Volume 92 fL (80-100); Monocytes # (Auto) 0.6 Thou/mm3 (0.0-0.8); Monocytes % (Auto) 8 % (0-12); Neutrophils # (Auto) 3.2 Thou/mm3 (1.8-7.7); Neutrophils % (Auto) 45 % (37-80); Nucleated Red Blood Cell # 0.00 Thou/mm3 (0.00-0.00); Nucleated Red Blood Cell % 0 /100 WBC (0); Platelet Count 142 Thou/mm3 (140-440); RDW Standard Deviation 49.4 fL (36.4-46.3); Red Blood Count 4.20 Miln/mm3 (4.00-5.20); White Blood Count 7.1 Thou/mm3 (3.6-11.0)
[2024-12-30 12:01] LABS: Alanine Aminotransferase 22 U/L (10-49); Albumin, Serum 4.3 gm/dL (3.4-4.8); Albumin/Globulin Ratio 1.6 (1.2-2.2); Alkaline Phosphatase 68 U/L (46-116); Anion Gap 10 (7-16); Aspartate Amino Transferase 22 U/L (0-34); BUN/Creatinine Ratio 16 Ratio (12-20); Bilirubin,Total 0.6 mg/dL (0.3-1.2); Blood Urea Nitrogen 11 mg/dL (9-23); Calcium 9.8 mg/dL (8.3-10.6); Calcium (Corrected) 9.8 mg/dL (8.5-10.1); Carbon Dioxide 24.5 mMol/L (20.0-31.0); Chloride 107 mMol/L (98-107); Creatinine (Component) 0.7 mg/dL (0.6-1.3); Estimated Creatinine Clearance 60.4 mL/min (>60); Globulin 2.7 gm/dL (2.3-3.5); Glucose 96 mg/dL (74-106); Osmolality,Calculated 280 (275-295); Potassium 4.0 mMol/L (3.4-5.1); Sodium 141 mMol/L (136-145); Total Protein 7.0 gm/dL (5.7-8.2); Troponin I < 0.020 ng/mL (0.0-0.045); eGFR > 60 See Note
[2024-12-30 12:21] VITALS: BP 163/86; PULSE 53; RESP 16; TEMP 36.5; O2SAT 98
[2024-12-30 14:32] LABS: Collection Type, Urine Clean Catch
[2024-12-30 15:18] LABS: Amorphous Crystals,Urine Present (Absent); Bilirubin,Urine Negative (Negative); Blood,Urine Negative (Negative); Clarity,Urine Clear (Clear/Hazy); Color,Urine Lt-Yellow (Lt Yel-Yel); Culture Indicated,Urine Not Indicated; Glucose, Urine Negative (Negative); Ketones,Urine Negative (Negative); Leukocyte Esterase,Urine Positive (Negative); Nitrite,Urine Negative (Negative); PH,Urine 6.0 (5.0-7.0); Protein,Urine Negative (Neg - Trace); RBC,Urine 3 /hpf (0-3); Specific Gravity,Urine 1.019 (1.001-1.035); Squamous Epithelial Cell,Urine 7 /hpf (0-5); Urobilinogen,Urine Negative mg/dL (0.0-1.0); WBC,Urine 9 /hpf (0-5)
== END 2024-12-30 16:42 | disposition home or self-care (01) ==
PROVIDERS: Emergency Provider Emergency Medicine; PCP Family Medicine
DX: N93.9 Abnormal uterine and vaginal bleeding, unspecified (principal); M79.89 Other specified soft tissue disorders; I48.91 Unspecified atrial fibrillation
CPT/HCPCS: 36415; 71045; 74177; 76856; 80053; 81001; 84484; 85025; 93005; 93971; 99284; A4649; Q9967

== ENCOUNTER → 2025-03-17 | Outpatient (CLI) | payer OTHER, SELFPAY ==
[2025-03-17 14:01] LABS: Collection Type, Urine Clean Catch
[2025-03-17 14:53] LABS: Bacteria,Urine 3+; Bilirubin,Urine Negative (Negative); Blood,Urine Trace (Negative); Calcium Oxalate Crystals,Urine 2+; Clarity,Urine Turbid (Clear/Hazy); Color,Urine Yellow (Lt Yel-Yel); Glucose, Urine Negative (Negative); Ketones,Urine Negative (Negative); Leukocyte Esterase,Urine Positive (Negative); Nitrite,Urine Positive (Negative); PH,Urine 6.0 (5.0-7.0); Protein,Urine Negative (Neg - Trace); RBC,Urine 17 /hpf (0-3); Specific Gravity,Urine 1.019 (1.001-1.035); Squamous Epithelial Cell,Urine 10 /hpf (0-5); Urobilinogen,Urine Negative mg/dL (0.0-1.0); WBC,Urine 333 /hpf (0-5)
[2025-03-17 14:55] LABS: Culture Indicated,Urine Yes
== END | disposition home or self-care (01) ==
LOC: SLDO 13:53
PROVIDERS: PCP Internal Medicine; Referring Provider Internal Medicine; Visit Provider Internal Medicine
DX: N39.0 Urinary tract infection, site not specified (principal)
CPT/HCPCS: 81001; 87077; 87086; 87186